=== PATIENT | female | born 1970 | race Hispanic/Latino ===

== ENCOUNTER 2020-10-26 19:30 | Emergency (ER) | payer SELFPAY ==
[2020-10-26] MEDS ORDERED: KETOROLAC 30MG VIAL (30MG/ML) ONE (19:47)
[2020-10-26] MEDS ORDERED: ACETAMINOPHEN WITH CODEINE 1 TAB TAB ONE (22:07)
== END 2020-10-26 22:14 | disposition home or self-care (01) ==
LOC: EDH 19:30
DX: S60.221A Contusion of right hand, initial encounter (principal); Z90.710 Acquired absence of both cervix and uterus; W22.8XXA Striking against or struck by other objects, initial encounter; Y93.89 Activity, other specified; Y92.89 Other specified places as the place of occurrence of the external cause; Y99.8 Other external cause status
CPT/HCPCS: 73130; 96372; 99283; J1885

== ENCOUNTER 2021-01-03 04:24 | Emergency (ER) | payer SELFPAY ==
[2021-01-03] MEDS ORDERED: GABAPENTIN 300 MG CAPSULE ONE (04:42)
[2021-01-03] MEDS ORDERED: HYDROMORPHONE 1 MG/1 ML AMP ONE (05:28)
== END 2021-01-03 06:17 | disposition home or self-care (01) ==
LOC: EDH 04:24
DX: S64.91XA Injury of unspecified nerve at wrist and hand level of right arm, initial encounter (principal); S61.202A Unspecified open wound of right middle finger without damage to nail, initial encounter; S61.204A Unspecified open wound of right ring finger without damage to nail, initial encounter; Z90.49 Acquired absence of other specified parts of digestive tract; Z90.710 Acquired absence of both cervix and uterus; X58.XXXA Exposure to other specified factors, initial encounter; Y93.89 Activity, other specified; Y92.89 Other specified places as the place of occurrence of the external cause; Y99.8 Other external cause status
CPT/HCPCS: 96372 ×2; 99284; J1170